=== PATIENT | male | born 1980 | race Caucasian/White ===

== ENCOUNTER 2017-10-27 13:45 | Emergency (ER) | payer MEDICAID ==
[~2017-10-27] VITALS: Ht 175.3 cm; Wt 122.5 kg
[~2017-10-27 13:45] MED LIST: ACET-6134 PO
[2017-10-27 13:48] VITALS: BP 128/71
--- NOTE | 2017-10-27 14:09 | NUR ---
TIMPLE AT BEDSIDE
--- NOTE | 2017-10-27 14:13 | NUR ---
PT WENT FOR XRAY
--- NOTE | 2017-10-27 14:18 | NUR ---
37/M PRESENT TO ER C/O COUGH AND COLD SYMPTOMS x ONE WEEK. HX: HTN, HYPERLIPIDEMIA MEDS: BENAZEPRIL. DENIES N/V/D; SKIN IS PINK/WARM/DRY; AAOX4 WITH EVEN AND STEADY GAIT; LUNGS CLEAR BL; HR EVEN AND REGULAR; PT DENIES ANY FEVER, CP, SOB, OR COUGH AT THIS TIME; PATIENT STATES PAIN OF 7/10 AT THIS TIME THROAT /CHEST; PATIENT POSITIONED FOR COMFORT; HOB ELEVATED; BEDRAILS UP X2; BED DOWN.
[2017-10-27] MEDS ORDERED: ONDANSETRON 4 MG ODT PO ONE (14:20)
[2017-10-27] MEDS ORDERED: cefTRIAXone 1,000 MG in LIDOCAINE MPF 1% - **ER/OR** 2.1 ML IM ONE (14:20)
[2017-10-27] MEDS ORDERED: predniSONE 20 MG TAB PO ONE (14:20)
[2017-10-27] MEDS ORDERED: FAMOTIDINE 20 MG TAB PO ONE (14:20)
--- NOTE | 2017-10-27 14:45 | NUR ---
TIMPLE AT BEDSIDE
[2017-10-27 15:09] VITALS: BP 139/78
--- NOTE | 2017-10-27 15:10 | NUR ---
Patient discharged with v/s stable. Written and verbal after care instructions given and explained. Patient alert, oriented and verbalized understanding of instructions. Ambulatory with steady gait. All questions addressed prior to discharge. ID band removed. Patient advised to follow up with PMD. Rx of ATIVAN,PROMETHAZINE,ZITHROMAX,PREDNISONE given. Patient educated on indication of medication including possible reaction and side effects. Opportunity to ask questions provided and answered.
== END 2017-10-27 15:10 | disposition home or self-care (01) ==
LOC: MED 13:45
DX: J03.90 Acute tonsillitis, unspecified (principal); J40 Bronchitis, not specified as acute or chronic; J32.9 Chronic sinusitis, unspecified; F41.9 Anxiety disorder, unspecified; I10 Essential (primary) hypertension
CPT/HCPCS: 36415; 71045; 87804; 96372; 99285; J0696; J2001; J7512; S0119

== ENCOUNTER 2017-12-12 14:38 | Emergency (ER) | payer MEDICAID ==
[~2017-12-12] VITALS: Ht 175.3 cm; Wt 127.9 kg
[2017-12-12 14:43] VITALS: BP 147/83
--- NOTE | 2017-12-12 14:48 | NUR ---
PT AMBULATED TO ER CHAIR B
--- NOTE | 2017-12-12 14:50 | NUR ---
37 YO M [employer] FAMILY W/ C/O LEFT THUMB PAIN 8/10 R/T HAVING A "THUMB WAR" WITH A JIU-DEMETRIUSU FRIEND "ABOUT A DAY AGO". NO SIGN OF INURY/TRAUMA/ABNORMALITY NOTED. PT A&O X 4. GCS 15. CMS INTACT. RR EVEN AND UNLABORED. LUNG SOUNDS BILAT CLEAR. ER MD MARTINEZ NOTIFIED. PT NEEDS MET. WILL CONTINUE TO MONITOR. Addendum: 12/12/17 at 1507 by [facility] 37 YO M DEL[employer] FAMILY W/ C/O RIGHT THUMB PAIN 8/10 R/T HAVING A "THUMB WAR" WITH A JIU-DEMETRIUSU FRIEND "ABOUT A DAY AGO". NO SIGN OF INURY/TRAUMA/ABNORMALITY NOTED. PT A&O X 4. GCS 15. CMS INTACT. RR EVEN AND UNLABORED. LUNG SOUNDS BILAT CLEAR. ER MD MARTINEZ NOTIFIED. PT NEEDS MET. WILL CONTINUE TO MONITOR.
[2017-12-12] MEDS ORDERED: IBUPROFEN 600 MG TAB PO ONE (15:00)
[2017-12-12 16:37] VITALS: BP 152/87
== END 2017-12-12 16:36 | disposition home or self-care (01) ==
LOC: MED 14:38
DX: S63.601A Unspecified sprain of right thumb, initial encounter (principal); I10 Essential (primary) hypertension; Z79.899 Other long term (current) drug therapy; X58.XXXA Exposure to other specified factors, initial encounter; Y93.72 Activity, wrestling; Y92.89 Other specified places as the place of occurrence of the external cause; Y99.8 Other external cause status
CPT/HCPCS: 73130; 99284

== ENCOUNTER 2018-07-03 18:54 | Emergency (ER) | payer MEDICAID ==
[~2018-07-03] VITALS: Ht 175.3 cm; Wt 122.5 kg
--- NOTE | 2018-07-03 19:01 | NUR ---
WAIT IN LOBBY
[2018-07-03 19:31] VITALS: BP 155/97
--- NOTE | 2018-07-03 19:35 | NUR ---
PT AMBULATED TO BED 12 WITH DAUGHTER. VSS.
--- NOTE | 2018-07-03 19:37 | NUR ---
PT PRESENTS TO ER WITH COUGH X 3MONTHS. PT STATES PRODUCTIVE WHITE THIN PRODUCTIVE COUGH PRESENT WTIH PAIN IN THROAT AND UPPER BACK. PT DENIES N/V/D AND FEVER. PT AXO4. NKDA, MED HX OF HTN AND HLD. PT PATIENT STATES PAIN OF 5/10 WHEN COUGHING; VSS; PATIENT POSITIONED FOR COMFORT; HOB ELEVATED; BEDRAILS UP X2; BED DOWN. ER MD MADE AWARE OF PT STATUS.
[2018-07-03 21:12] LABS: BASOPHILS # (AUTO) 0.1 K/uL (0.00-0.22); BASOPHILS % (AUTO) 0.8 % (0.0-2.0); EOSINOPHILS # (AUTO) 0.1 K/uL (0-0.4); EOSINOPHILS % (AUTO) 1.6 % (0.0-4.0); LYMPHOCYTES # (AUTO) 1.6 K/uL (2.0-11.5); LYMPHOCYTES % (AUTO) 21.7 % (20.5-51.1); MEAN CORPUSCULAR HEMOGLOBIN 29 pg (27-31); MEAN CORPUSCULAR HGB CONC 34 g/dL (33-37); MEAN CORPUSCULAR VOLUME 86.3 fL (80-94); MONOCYTES # (AUTO) 0.5 K/uL (0.8-1.0); MONOCYTES % (AUTO) 6.4 % (1.7-9.3); NEUTROPHILS % (AUTO) 69.5 % (42.2-75.2); PLATELET COUNT (AUTO) 202 K/uL (140-450); RED BLOOD CELL COUNT(AUTO) 5.79 MIL/uL (4.20-6.10); RED CELL DISTRIBUTION WIDTH 13.8 % (11.6-13.7); WHITE BLOOD COUNT (AUTO) 7.2 K/uL (4.8-10.8)
[2018-07-03 21:21] LABS: ANION GAP 11.5 (8-16); CARBON DIOXIDE 28.9 mmol/L (21-32); CREATININE 1.3 mg/dL (0.7-1.3); POTASSIUM 4.4 mmol/L (3.5-5.1)
[2018-07-03 21:28] LABS: ALBUMIN 3.9 g/dL (3.4-5.0); TOTAL BILIRUBIN 0.2 mg/dL (0.0-1.0)
[2018-07-03 21:34] LABS: APPEARANCE,URINE CLEAR (CLEAR); BILIRUBIN,URINE NEGATIVE (NEGATIVE); BLOOD, URINE TRACE-I (NEGATIVE); COLOR,URINE YELLOW (YELLOW); LEUKOCYTE ESTERASE ,URINE NEGATIVE (NEGATIVE); NITRITE, URINE NEGATIVE (NEGATIVE); UGLUCOSE NEGATIVE (NEGATIVE)
[2018-07-03 21:35] LABS: RBC,URINE 0-5 (RARE) /HPF (0-5); WBC,URINE NONE SEEN /HPF (0-5)
[2018-07-03 22:32] VITALS: BP 145/96
--- NOTE | 2018-07-03 22:33 | NUR ---
Deejay durán in EDM - 07/03/18 at 2233 by MARISOL Patient discharged with v/s stable. Written and verbal after care instructions given and explained. Patient verbalized understanding. Ambulatory with steady gait. All questions addressed prior to discharge. Advised to follow up with PMD.
== END 2018-07-03 22:32 | disposition home or self-care (01) ==
LOC: MED 18:54
DX: R05 Cough (principal); R10.9 Unspecified abdominal pain; I10 Essential (primary) hypertension; E78.00 Pure hypercholesterolemia, unspecified; F17.210 Nicotine dependence, cigarettes, uncomplicated; Z79.1 Long term (current) use of non-steroidal anti-inflammatories (NSAID)
CPT/HCPCS: 36415; 71046; 80053; 81001; 83690; 85025; 99284

== ENCOUNTER 2022-06-23 15:28 | Emergency (ER) | payer MEDICAID, OTHER ==
[~2022-06-23] VITALS: Ht 175.3 cm; Wt 123.8 kg
[~2022-06-23 15:28] MED LIST changes: +ACET-10509 PO; -ACET-6134 PO
[2022-06-23 15:36] VITALS: BP 216/117
--- NOTE | 2022-06-23 15:46 | NUR ---
42/M WALKED IN C/O COUGH AND CONGESTION ACCOMPANIED BY FEVER ONSET 3 DAYS. PT ALSO PREESNTS WITH ELEVATED BP. PT STATES RUNNING OUT OF BP MEDS. AAO4, AMBULATORY.
--- NOTE | 2022-06-23 16:17 | NUR ---
INGROWN TOENAIL NOTED BY RICHARD.
--- NOTE | 2022-06-23 16:20 | NUR ---
R BIG TOE PLACED IN SOLUTION OF NORMAL SALINE AND BETADINE.
[2022-06-23] MEDS ORDERED: HYDROcodone/APAP 5/325 MG 1 TAB TAB PO ONE (16:25)
[2022-06-23] MEDS ORDERED: LIDOCAINE MPF 1% 10 MG/ML VIAL INJ ONE (16:30)
[2022-06-23] MEDS ORDERED: NEOMYCIN/POLYMYXIN/BACITRACIN 0.9 GM/1 PKT TP ONE (16:30)
[2022-06-23] MEDS ORDERED: ENALAPRIL 10 MG TAB PO ONE (16:40)
[2022-06-23] MEDS ORDERED: ACETAMINOPHEN EXTRA STRENGTH 500 MG TAB PO ONE (16:40)
[2022-06-23] MEDS ORDERED: IBUPROFEN 600 MG TAB PO ONE (16:40)
--- NOTE | 2022-06-23 17:38 | NUR ---
DR MARTINEZ AT BEDSIDE FOR NAIL EXTRACTION
[2022-06-23] MEDS ORDERED: LIDOCAINE MPF 1% 5 ML ONE (17:43)
--- NOTE | 2022-06-23 17:46 | NUR ---
PER ERMD, PROVIDED LIDO 1% 5ML
[2022-06-23 18:11] VITALS: BP 158/94
[2022-06-23] MEDS ORDERED: IBUP-2213 PO (18:14)
[2022-06-23] MEDS ORDERED: CEPH-588 PO (18:14)
[2022-06-23] MEDS ORDERED: ENAL-197 PO (18:14)
--- NOTE | 2022-06-23 18:15 | NUR ---
Patient discharged with v/s stable. Written and verbal after care instructions given and explained. Patient alert, oriented and verbalized understanding of instructions. Ambulatory with steady gait. All questions addressed prior to discharge. ID band removed. Patient advised to follow up with PMD. Patient educated on indication of medication including possible reaction and side effects. Opportunity to ask questions provided and answered.
--- NOTE | 2022-06-23 18:19 | NUR ---
NON ADHERENT APPLIED TO R BIG TOE. + CMS
== END 2022-06-23 18:15 | disposition home or self-care (01) ==
LOC: MED 15:28
DX: L60.0 Ingrowing nail (principal); Z20.822 Contact with and (suspected) exposure to COVID-19; J11.1 Influenza due to unidentified influenza virus with other respiratory manifestations; I10 Essential (primary) hypertension; Z79.899 Other long term (current) drug therapy
CPT/HCPCS: 11730; 87426; 87804; 99284; J2001

== ENCOUNTER 2022-12-05 16:30 | Emergency (ER) | payer OTHER ==
[~2022-12-05] VITALS: Ht 175.3 cm; Wt 123.8 kg
[~2022-12-05 16:30] MED LIST changes: +CEPH-588 PO; +ENAL-197 PO; +IBUP-2213 PO
[2022-12-05 16:50] VITALS: BP 174/108
[2022-12-05] MEDS ORDERED: KETOROLAC 30 MG/ML VIAL IM ONE (20:05)
[2022-12-05] MEDS ORDERED: DEXAMETHASONE 10 MG/ML VIAL IM ONE (20:05)
[2022-12-05] MEDS ORDERED: ENAL-197 PO (20:21)
[2022-12-05] MEDS ORDERED: AMOX500C25 PO (20:21)
[2022-12-05] MEDS ORDERED: IBUP-2213 PO (20:21)
--- NOTE | 2022-12-05 21:00 | NUR ---
PT BP 186/123 WITH NO SYMPTOMS. NOTIFIED. PER DR. SWENSON PT OK TO D/C
[2022-12-05 21:05] VITALS: BP 186/123
--- NOTE | 2022-12-05 21:05 | NUR ---
Patient discharged with v/s stable. Written and verbal after care instructions given and explained. Patient alert, oriented and verbalized understanding of instructions. Ambulatory with steady gait. All questions addressed prior to discharge. ID band removed. Patient advised to follow up with PMD. Rx of AMOXICILLIN, VASOTEC, MOTRIN given. Patient educated on indication of medication including possible reaction and side effects. Opportunity to ask questions provided and answered.
== END 2022-12-05 21:05 | disposition home or self-care (01) ==
LOC: MED 16:30
DX: J02.0 Streptococcal pharyngitis (principal); I10 Essential (primary) hypertension; Z79.899 Other long term (current) drug therapy; Z79.1 Long term (current) use of non-steroidal anti-inflammatories (NSAID); Z79.2 Long term (current) use of antibiotics
CPT/HCPCS: 93005; 96372; 99284; J1100; J1885

== ENCOUNTER 2023-07-24 23:34 | Emergency (ER) | payer OTHER ==
[~2023-07-24] VITALS: Ht 175.3 cm; Wt 126.6 kg
[~2023-07-24 23:34] MED LIST changes: +AMOX500C25 PO
[2023-07-24 23:46] VITALS: BP 193/136; PULSE 95; RESP 20; TEMP 98.3; O2SAT 96
[2023-07-25] MEDS ORDERED: ENALAPRIL 10 MG TAB PO ONE (00:45)
[2023-07-25] MEDS ORDERED: LORazepam 1 MG TAB PO ONE (00:45)
[2023-07-25] MEDS ORDERED: ENAL-197 PO (00:49)
[2023-07-25] MEDS ORDERED: ALBU0.0912 IH (01:06)
[2023-07-25] MEDS ORDERED: ATI.5 PO (01:06)
[2023-07-25 01:25] VITALS: BP 163/111; PULSE 85; RESP 18; O2SAT 96
== END 2023-07-25 01:25 | disposition home or self-care (01) ==
LOC: MED 23:34
DX: I10 Essential (primary) hypertension (principal); F41.9 Anxiety disorder, unspecified; Z76.0 Encounter for issue of repeat prescription; Z79.899 Other long term (current) drug therapy
CPT/HCPCS: 99283